=== PATIENT | male | born 1935 ===

== ENCOUNTER 2024-08-26 06:15 | Day surgery (SDC) | payer MEDICARE, OTHER, SELFPAY ==
[2024-08-26 12:10] LABS: Glucose - Point of Care 129 mg/dl (70-99)
== END 2024-08-26 14:15 | disposition home or self-care (01) ==
LOC: GI 06:15
PROVIDERS: ATTENDING PHYSICIAN Internal Medicine Gastroenterology
DX: R12 Heartburn (principal); K44.9 Diaphragmatic hernia without obstruction or gangrene; K31.7 Polyp of stomach and duodenum; K31.89 Other diseases of stomach and duodenum; K90.0 Celiac disease; D72.820 Lymphocytosis (symptomatic)
CPT/HCPCS: 43239; 88305; 82962; 88342